=== PATIENT | female | born 1925 | race Caucasian/White ===

== ENCOUNTER 2017-07-14 20:02 | Emergency (ER) | payer OTHER, BC ==
--- NOTE | 2017-07-14 20:05 | PDOC ---
History of Present Illness <Cathryn Louis - Last Filed: 07/14/17 21:45> <Amanda Almanza - Last Filed: 07/17/17 00:34> - General Chief Complaint: Chest Pain Stated Complaint: SENT BY PMD-CP Time Seen by Provider: 07/14/17 20:03 - History of Present Illness Initial Comments: 07/14/17 20:55 89 year old female with a past medical history of HTN, COLE, hiatal hernia who presents to the ED sent by PCP with chest pain today. Patient reports that she has had a hiatal hernia for about 30 years, and occasionally after she eats, she gets epigastric/chest discomfort. She usually takes a Tums and it resolves. Patient noticed similar pain intermittently, but did not mention it to her PCP yesterday when she saw her and regretted it and believed the pain may not be from her hiatal hernia, but instead because of the tapering of her Bystolic, which began a week ago. She reports today the pain lasted 20 minutes and resolved with Tums. She called her PCP and told her about the pain, who sent her to be evaluated. She denies SOB, palpitations, diaphoresis, fever, chills. Denies nausea, vomiting, diarrhea. Denies headache, dizziness. PCP: Dr. Torri Masters: former smoker (quit 20 years ago) (Cathryn Louis) Past History <Cathryn Louis - Last Filed: 07/14/17 21:45> <Amanda Almanza - Last Filed: 07/17/17 00:34> - Past Medical History Allergies/Adverse Reactions: Allergies Allergy/AdvReac Type Severity Reaction Status Date / Time No Known Allergies Allergy Unverified 07/14/17 20:04 Home Medications: Ambulatory Orders Valsartan [Diovan] 10 mg PO DAILY 07/14/17 Review of Systems - Review of Systems Constitutional: No: Chills, Diaphoresis, Fever Cardiac (ROS): Yes: Chest Pain. No: Lightheadedness ABD/GI: No: Nausea, Vomiting Neurological: No: Headache, Dizziness All Other Systems: Reviewed and Negative <Cathryn Louis - Last Filed: 07/14/17 21:45> *Physical Exam <Cathryn Louis - Last Filed: 07/14/17 21:45> <Amanda Almanza - Last Filed: 07/17/17 00:34> - Vital Signs Last Vital Signs Temp Pulse Resp BP Pulse Ox 98.4 F 90 14 161/84 96 07/14/17 20:06 07/14/17 20:06 07/14/17 20:06 07/14/17 22:23 07/14/17 20:06 - Physical Exam Comments: 07/14/17 20:55 GENERAL: The patient is awake, alert, and fully oriented, in no acute distress. HEAD: Normal with no signs of trauma. EYES: Pupils equal, round and reactive to light, extraocular movements intact, sclera anicteric, conjunctiva clear with no pallor. ENT: Ears normal, nares patent, oropharynx clear without exudates. Dry mucous membranes. NECK: Normal range of motion, supple without lymphadenopathy, JVD, or masses. LUNGS: Scattered crackles at the right base. Left lung clear with no wheezes or crackles. HEART: Regular rate and rhythm, normal S1 and S2 without murmur or rub. ABDOMEN: Soft/nontender/nondistended. BS wnl. No guarding or rebound. No palpable masses. No hepatosplenomegaly. EXTREMITIES: Normal range of motion, no edema. No clubbing or cyanosis. No cords, erythema, or tenderness. NEUROLOGICAL: Cranial nerves II through XII grossly intact. Normal speech, normal gait. PSYCH: Normal mood, normal affect. SKIN: Warm, Dry, normal turgor, no rashes or lesions noted. (Cathryn Louis) ED Treatment Course - LABORATORY CBC & Chemistry Diagram: 07/14/17 20:25 07/14/17 20:05 <Cathryn Louis - Last Filed: 07/14/17 21:45> - LABORATORY CBC & Chemistry Diagram: 07/14/17 20:25 07/14/17 20:05 <Amanda Almanza - Last Filed: 07/17/17 00:34> - ADDITIONAL ORDERS Additional order review: 07/14/17 20:25 RBC 4.09 MCV 88.3 MCHC 35.8 RDW 12.7 MPV 8.1 Neutrophils % 59.5 Lymphocytes % 29.4 Monocytes % 9.4 Eosinophils % 1.3 Basophils % 0.4 - RADIOLOGY Radiology Studies Ordered: Category Date Time Status CHEST X-RAY PORTABLE* [RAD] Stat Radiology 07/14/17 21:02 Completed Progress Note <Cathryn Louis - Last Filed: 07/14/17 21:45> <Amanda Almanza - Last Filed: 07/17/17 00:34> - Progress Note Progress Note: Documentation has been prepared under my direction and personally reviewed by me in its entirety. I attest that this documented accurately reflects all work, treatment, procedures and medical decision making performed by me. Laboratory evaluation is essentially normal, including cardiac enzymes. Twelve-lead electrocardiogram is performed and interpreted by me. This shows normal sinus rhythm at 79 beats for minute. There is left bundle branch block. No previous electrocardiogram tracings are available for comparison. (Amanda Almanza) Medical Decision Making <Cathryn Louis - Last Filed: 07/14/17 21:45> <Amanda Almanza - Last Filed: 07/17/17 00:34> - Medical Decision Making Results of evaluation discussed with . Patient will be discharged with plan to follow-up tomorrow with Dr. Bahman Underwood. Plan discussed with the patient, including probable restart of antihypertensive medication. Patient was informed that this will not be a beta susie. Patient understands plan and agrees to it. (Amanda Almanza) *DC/Admit/Observation/Transfer <Cathryn Louis - Last Filed: 07/14/17 21:45> <Amanda Almanza - Last Filed: 07/17/17 00:34> Diagnosis at time of Disposition: Atypical chest pain Hypertension Qualifiers: Hypertension type: essential hypertension Qualified Code(s): I10 - Essential ( primary) hypertension - Discharge Dispostion Disposition: HOME Condition at time of disposition: Stable - Referrals Referrals: Torri Navarro MD [Primary Care Provider] - Call tomorrow - Patient Instructions Printed Discharge Instructions: DI for Atypical Chest Pain Additional Instructions: Call Dr. Bahman Underwood tomorrow regarding further follow-up Return to ER if you have persistent chest pain or experience shortness of breath - Attestations Scribe Attestion: 07/14/17 20:56 Documentation prepared by Cathryn Louis, acting as certified court/medical interpreter for Amanda Almanza MD. (Cathryn Louis)
[2017-07-14 20:14] VITALS: PULSE 90; TEMP 98.4; BMI 23.8
[2017-07-14 20:40] LABS: BASOPHIL 0.4 % (0-2.0); EOSINOPHIL 1.3 % (0-4.5); MCH 31.6 pg (25.7-33.7); MCHC 35.8 g/dl (32.0-36.0); MEAN CELL VOLUME 88.3 fl (80-96); MEAN PLT VOLUME 8.1 fl (7.5-11.1); NEUTROPHILS 59.5 % (42.8-82.8); PLATELET COUNT 176 K/MM3 (134-434); RDW 12.7 % (11.6-15.6); WHITE BLOOD COUNT 6.1 K/mm3 (4.0-10.8)
[2017-07-14 20:46] LABS: INR 1.03 (0.82-1.09); PROTHROMBIN TIME (PATIENT) 11.5 SEC (10.2-13.0)
[2017-07-14 20:59] LABS: ALBUMIN 4.1 g/dl (3.5-5.0); ALK PHOS 68 U/L (32-92); ANION GAP 8 (8-16); BILIRUBIN,TOTAL 0.3 mg/dl (0.2-1.0); CALCIUM 9.7 mg/dl (8.4-10.2); CO2 28 mmol/L (22-28); CPK 66 IU/L (26-192); CREATININE 0.6 mg/dl (0.6-1.3); GLUCOSE,RANDOM 100 mg/dl (74-106); SGOT/AST 24 U/L (10-42); SGPT/ALT 17 U/L (10-40); TOT PROT 7.1 g/dl (6.4-8.3)
[2017-07-14 21:44] LABS: TROPONIN I (DFP) < 0.03 ng/ml (0.03-0.50)
[2017-07-14 22:25] VITALS: BP 161/84
--- NOTE | 2017-07-15 13:07 | EKG ---
Test Reason : Blood Pressure : / mmHG Vent. Rate : 079 BPM Atrial Rate : 079 BPM P-R Int : 186 ms QRS Dur : 124 ms QT Int : 410 ms P-R-T Axes : 067 -27 087 degrees QTc Int : 470 ms POOR DATA QUALITY, INTERPRETATION MAY BE ADVERSELY AFFECTED SINUS RHYTHM LEFT BUNDLE BRANCH BLOCK ABNORMAL ECG NO PREVIOUS ECGS AVAILABLE Confirmed by FREDERIC LEMA MD ([id number] on 07/15/2017 1:07:48 PM Referred By: Confirmed By:FREDERIC LEMA MD
== END 2017-07-14 22:25 | disposition home or self-care (01) ==
LOC: FER 20:02
DX: R07.89 Other chest pain (principal); I10 Essential (primary) hypertension; F41.1 Generalized anxiety disorder; K44.9 Diaphragmatic hernia without obstruction or gangrene
CPT/HCPCS: 36415; 71010-TC; 80053; 84484; 85025; 85610; 93005; 99285-25